=== PATIENT | female | born 2000 | race Caucasian/White ===

== ENCOUNTER 2022-04-24 15:08 | Emergency (ER) | payer BC, OTHER ==
[~2022-04-24] VITALS: Ht 160 cm; Wt 49.0 kg
[2022-04-24 16:35] LABS: Urine Bacteria FEW /hpf (None Seen); Urine Blood 2+ /uL (Negative); Urine Hyaline Cast FEW /lpf (0 - 2); Urine Mucus FEW (None Seen); Urine Specific Gravity 1.029 (1.001-1.035); Urine WBC 140 /hpf (0 - 5)
[2022-04-24 22:48] LABS: Basophils # (auto) 0 10 ^3/uL (0-0.2); Basophils % (auto) 0.5 % (0.0-2.0); Eosinophils # (auto) 0.1 10 ^3/uL (0-0.8); Eosinophils % (auto) 0.9 % (0.0-7.0); Hematocrit 41.2 % (36.0-46.0); Hemoglobin 13.4 g/dL (12.2-16.2); Lymphocytes # (auto) 2.2 10 ^3/uL (0.4-5.4); Lymphocytes % (auto) 27.1 % (10.0-50.0); Mean Corpuscular Hemoglobin 28.6 pg (28.0-32.0); Mean Corpuscular Hgb Conc. 32.4 g/dL (32.0-36.0); Mean Corpuscular Volume 88.1 fL (80.0-100.0); Monocytes # (auto) 0.8 10 ^3/uL (0-1.3); Monocytes % (auto) 9.6 % (0.0-12.0); Neutrophils # (auto) 4.9 10 ^3/uL (1.6-8.6); Neutrophils % (auto) 61.9 % (37.0-80.0); Red Blood Cells 4.67 10^6/uL (4.0-5.20)
[2022-04-24] MEDS ORDERED: CEFP200T15 PO (23:13)
[2022-04-25 00:07] VITALS: BP 113/67
== END 2022-04-25 00:07 | disposition home or self-care (01) ==
LOC: ER 15:08
DX: O23.41 Unspecified infection of urinary tract in pregnancy, first trimester (principal); N39.0 Urinary tract infection, site not specified; Z3A.01 Less than 8 weeks gestation of pregnancy
CPT/HCPCS: 36415; 76801; 81001; 81025; 84702; 85025

== ENCOUNTER 2022-06-07 15:33 | Emergency (ER) | payer BC ==
[~2022-06-07] VITALS: Ht 157.5 cm; Wt 62.4 kg
[~2022-06-07 15:33] MED LIST: CEFP200T15 PO
[2022-06-07 17:03] LABS: Basophils # (auto) 0.1 10 ^3/uL (0-0.2); Basophils % (auto) 0.6 % (0.0-2.0); Eosinophils # (auto) 0.1 10 ^3/uL (0-0.8); Eosinophils % (auto) 0.7 % (0.0-7.0); Hematocrit 40.5 % (36.0-46.0); Hemoglobin 13.3 g/dL (12.2-16.2); Lymphocytes # (auto) 2.1 10 ^3/uL (0.4-5.4); Lymphocytes % (auto) 21.5 % (10.0-50.0); Mean Corpuscular Hgb Conc. 32.8 g/dL (32.0-36.0); Mean Corpuscular Volume 88.3 fL (80.0-100.0); Monocytes # (auto) 0.6 10 ^3/uL (0-1.3); Monocytes % (auto) 5.7 % (0.0-12.0); Neutrophils # (auto) 6.9 10 ^3/uL (1.6-8.6); Neutrophils % (auto) 71.5 % (37.0-80.0); Red Blood Cells 4.59 10^6/uL (4.0-5.20); Red Cell Distribution Width 14.3 % (11.8-14.3); White Blood Cell 9.6 10^3/uL (4.4-10.8)
[2022-06-07 17:26] LABS: Albumin 3.3 g/dL (3.4-5.0); BUN/Creatinine Ratio 14.8; Calcium 8.4 mg/dL (8.5-10.1); Potassium 3.7 mmol/L (3.5-5.1)
[2022-06-07 17:29] LABS: Bilirubin, Total 0.9 mg/dL (0.2-1.0); Total Protein 6.8 g/dL (6.4-8.2)
[2022-06-07 18:12] LABS: Urine Bacteria FEW /hpf (None Seen); Urine Blood 1+ /uL (Negative); Urine Mucus FEW (None Seen); Urine Specific Gravity 1.037 (1.001-1.035); Urine WBC 8 /hpf (0 - 5)
[2022-06-08] MEDS ORDERED: NITR-87 PO (00:28)
[2022-06-08 00:36] VITALS: BP 104/70
== END 2022-06-08 00:42 | disposition home or self-care (01) ==
LOC: ER 15:33
DX: O20.0 Threatened abortion (principal); O23.41 Unspecified infection of urinary tract in pregnancy, first trimester; Z3A.13 13 weeks gestation of pregnancy
CPT/HCPCS: 36415; 76801; 80053; 81001; 84702; 85025

== ENCOUNTER 2022-11-02 16:07 | Observation (INO) | payer BC, MEDICAID ==
[~2022-11-02] VITALS: Ht 160 cm; Wt 56.7 kg
[~2022-11-02 16:07] MED LIST changes: +NITR-87 PO
[2022-11-02] MEDS: TERBUTALINE SULFATE 1 MG/ML 1ML VIAL SC SCH ×3 (17:11→18:31)
[2022-11-02] MEDS ORDERED: PREN1TAB71 OR (17:28)
[2022-11-02] MEDS ORDERED: BETAMETHASONE ACET (30mg/5ml) 5ml Vial 6mg/ml IM ONE (18:15)
[2022-11-02] MEDS ORDERED: NIFEdipine 10 MG CAP PO ONE (18:30)
[2022-11-02] MEDS ORDERED: LACTATED RINGER'S 1,000 ML IV SCH (18:30)
[2022-11-02] MEDS ORDERED: NIF10C PO (20:31)
== END 2022-11-02 20:50 | disposition home or self-care (01) ==
LOC: LDRP 16:07 → UNDOADMOB 16:07 → LDRP 16:25
PROVIDERS: ADMIT Obstetrics & Gynecology; ATTEND Obstetrics & Gynecology
DX: O60.03 Preterm labor without delivery, third trimester (principal); O46.93 Antepartum hemorrhage, unspecified, third trimester; Z3A.34 34 weeks gestation of pregnancy
CPT/HCPCS: 59025; 76815; 81002; 94760; 96360; 96361; 96372; G0378; J0702; J3105

== ENCOUNTER 2022-11-03 09:21 | Observation (INO) | payer MEDICAID ==
[~2022-11-03] VITALS: Ht 160 cm; Wt 56.7 kg
[~2022-11-03 09:21] MED LIST changes: +NIF10C PO; +PREN1TAB71 OR
[2022-11-03] MEDS ORDERED: BETAMETHASONE ACET (30mg/5ml) 5ml Vial 6mg/ml IM ONE (19:30)
== END 2022-11-03 19:56 | disposition home or self-care (01) ==
LOC: LDRP 19:05
PROVIDERS: ADMIT Obstetrics & Gynecology; ATTEND Obstetrics & Gynecology
DX: O60.03 Preterm labor without delivery, third trimester (principal); Z3A.34 34 weeks gestation of pregnancy
CPT/HCPCS: 59025; 81002; 94760; 96372; G0378

== ENCOUNTER 2022-11-08 10:55 | Observation (INO) | payer MEDICAID | END 2022-11-08 12:05 | disposition home or self-care (01) | LOC: LDRP 10:55 → UNDOADMOB 10:55 → LDRP 11:49 → UNDODISOB 12:05 | PROVIDERS: ADMIT Obstetrics & Gynecology; ATTEND Obstetrics & Gynecology | DX: O62.9 Abnormality of forces of labor, unspecified (principal); Z3A.35 35 weeks gestation of pregnancy | CPT/HCPCS: 59025; 76818; 81002; 94760; G0378 ==

== ENCOUNTER 2022-11-15 06:56 | Inpatient (IN) | payer MEDICAID ==
[~2022-11-15] VITALS: Ht 160 cm; Wt 57.2 kg
[2022-11-15] MEDS ORDERED: WITCH HAZEL-GLYCERIN PAD TOP PRN (07:15)
[2022-11-15] MEDS ORDERED: PROMETHAZINE HCL 25 MG/ML 1ML IV PRN (07:15)
[2022-11-15] MEDS ORDERED: BUTORPHANOL TARTRATE 2 MG/1 ML VIAL IV PRN ×2 (07:15)
[2022-11-15] MEDS ORDERED: PENICILLIN G POT 5MIL/D5 50ML 50 ML IV ONE (07:15)
[2022-11-15] MEDS ORDERED: LIDOCAINE 2%HCL (LOCAL ANESTH.) INJ 20ML MDV IJ PRN (07:15)
[2022-11-15] MEDS ORDERED: PHISODERM TOP SOLN 240ML BTL TOP PRN (07:15)
[2022-11-15] MEDS ORDERED: DERMOPLAST 60ML BOTTLE TOP PRN (07:15)
[2022-11-15 07:42] LABS: Basophils # (auto) 0.1 10 ^3/uL (0-0.2); Basophils % (auto) 0.8 % (0.0-2.0); Eosinophils # (auto) 0.1 10 ^3/uL (0-0.8); Eosinophils % (auto) 0.6 % (0.0-7.0); Hematocrit 44.1 % (36.0-46.0); Lymphocytes # (auto) 3.1 10 ^3/uL (0.4-5.4); Lymphocytes % (auto) 24.6 % (10.0-50.0); Mean Corpuscular Hemoglobin 31.1 pg (28.0-32.0); Mean Corpuscular Volume 91.6 fL (80.0-100.0); Monocytes # (auto) 0.8 10 ^3/uL (0-1.3); Monocytes % (auto) 6.6 % (0.0-12.0); Neutrophils # (auto) 8.5 10 ^3/uL (1.6-8.6); Neutrophils % (auto) 67.4 % (37.0-80.0); Nucleated Red Blood Cells % 0.1 %; Red Blood Cells 4.82 10^6/uL (4.0-5.20); Red Cell Distribution Width 13.1 % (11.8-14.3); White Blood Cell 12.5 10^3/uL (4.4-10.8)
[2022-11-15 07:54] LABS: INR 0.85 (0.9-1.15); Partial Thromboplastin Time 25.6 sec (24.6-33.4)
[2022-11-15 08:13] LABS: Albumin 2.6 g/dL (3.4-5.0); BUN/Creatinine Ratio 11.9; Calcium 9.1 mg/dL (8.5-10.1); Potassium 4.1 mmol/L (3.5-5.1)
[2022-11-15 08:15] LABS: Bilirubin, Total 0.6 mg/dL (0.2-1.0); Total Protein 6.7 g/dL (6.4-8.2)
[2022-11-15] MEDS: LACTATED RINGER'S 1,000 ML IV SCH (08:24)
[2022-11-15] MEDS ORDERED: LACT. RINGERS/OXYTOCIN 20UNITS 500 ML IV ONE ×2 (08:30→09:00)
[2022-11-15 09:46] LABS: Urine Bacteria NONE SEEN /hpf (None Seen); Urine Blood Negative /uL (Negative); Urine Specific Gravity 1.006 (1.001-1.035); Urine WBC 2 /hpf (0 - 5)
[2022-11-15 10:36] LABS: Alcohol, Urine < 3.0 mg/dL (0-10); Amphetamine Screen, Urine NEGATIVE (NEGATIVE); Barbiturate Scree,Urine NEGATIVE (NEGATIVE); Benzodiazephine Screen, Urine NEGATIVE (NEGATIVE); Cannabinoid Screen, Urine NEGATIVE (NEGATIVE); Cocaine Screen, Urine NEGATIVE (NEGATIVE); Opiate Scree,Urine NEGATIVE (NEGATIVE); Phencyclidine Screen, Urine NEGATIVE (NEGATIVE)
[2022-11-15] MEDS ORDERED: TERBUTALINE SULFATE 1 MG/ML 1ML VIAL SC PRN (10:45)
[2022-11-15] MEDS: LACT. RINGERS/OXYTOCIN 20UNITS 1,000 ML IV SCH ×2 (11:19→19:17)
[2022-11-15] MEDS: PENICILLIN G POTASSIUM 2,500,000 UNITS in D5W 5% 50 ML IV SCH ×3 (13:25→21:00)
[2022-11-16] MEDS: PENICILLIN G POTASSIUM 2,500,000 UNITS in D5W 5% 50 ML IV SCH ×2 (01:03→04:51)
[2022-11-16] MEDS: LACTATED RINGER'S 1,000 ML IV SCH (04:42)
[2022-11-16] MEDS ORDERED: IBUPROFEN 600 MG TAB PO PRN (07:00)
[2022-11-16] MEDS ORDERED: ACETAMINOPHEN 325 MG TAB PO PRN (07:00)
[2022-11-16] MEDS ORDERED: ONDANSETRON ODT 4 MG TAB PO PRN (07:00)
[2022-11-16 07:07] LABS: RPR Non Reactive (Non Reactive)
[2022-11-16 11:12] VITALS: BP 104/55
[2022-11-16 15:28] VITALS: BP 108/59
[2022-11-16 18:59] VITALS: BP 102/61
[2022-11-16 23:00] VITALS: BP 102/59
[2022-11-17 03:00] VITALS: BP 103/63
[2022-11-17 07:07] VITALS: BP 105/63
[2022-11-17 10:44] VITALS: BP 108/75
[2022-11-17 15:00] VITALS: BP 105/74
[2022-11-17 19:15] VITALS: BP 104/64
[2022-11-17 23:12] VITALS: BP 102/66
[2022-11-18 03:00] VITALS: BP 104/59
[2022-11-18 07:05] VITALS: BP 108/66
== END 2022-11-18 13:02 | disposition home or self-care (01) | DRG 560 ==
LOC: LDRP 06:56 → OBSVTOIN 06:56 → LDRP 11-17 15:16
PROVIDERS: ADMIT Obstetrics & Gynecology; ATTEND Obstetrics & Gynecology
PROC: 10E0XZZ Delivery of Products of Conception, External Approach (ICD-10-PCS; principal; 2022-11-16)
PROC: 0HQ9XZZ Repair Perineum Skin, External Approach (ICD-10-PCS; 2022-11-16)
DX: O60.14X0 Preterm labor third trimester with preterm delivery third trimester, not applicable or unspecified (principal); Z37.0 Single live birth; O69.81X0 Labor and delivery complicated by cord around neck, without compression, not applicable or unspecified; Z3A.36 36 weeks gestation of pregnancy; Z20.822 Contact with and (suspected) exposure to COVID-19; O70.0 First degree perineal laceration during delivery; Z3A.49 Greater than 42 weeks gestation of pregnancy
CPT/HCPCS: 36415; 59025; 59409; 80053; 80307; 81001; 81002; 85025; 85610; 85730; 86592; 86850; 86900; 86901; 87426; 94760; 94762; 96360; 96361; 96365; 96366; G0378; J2540; J2590; J7060

== ENCOUNTER 2023-12-07 15:45 | Emergency (ER) | payer MEDICAID ==
[~2023-12-07] VITALS: Ht 160 cm; Wt 46.6 kg
[2023-12-07 16:26] VITALS: BP 121/80; PULSE 75; RESP 16; TEMP 98.2; O2SAT 100
== END 2023-12-07 17:08 | disposition home or self-care (01) ==
LOC: ER 15:45
DX: Z32.02 Encounter for pregnancy test, result negative (principal); R10.2 Pelvic and perineal pain; Z79.899 Other long term (current) drug therapy
CPT/HCPCS: 36415; 84702

== ENCOUNTER 2025-02-20 17:36 | Emergency (ER) | payer MEDICAID ==
[~2025-02-20] VITALS: Ht 160 cm; Wt 48.4 kg
[~2025-02-20 17:36] MED LIST changes: -NIF10C PO; +NIFE10CA52 PO
--- NOTE | 2025-02-20 18:18 | ED.PDOC ---
[facility] DIRECTOR HPI Comments 24-year-old female with current approximate 9 week brought in by self complaining of vaginal spotting that started about an hour ago when wiping after using the restroom. She denies any abdominal pain, fever, nausea or vomiting. Denies any other symptoms. She states she became concerned because she has had a miscarriage in the past. Time Seen by MD: 18:00 Reviewed Notes: Nurses Notes, Medications, Allergies Allergies: Coded Allergies: NO KNOWN ALLERGIES (Unverified , 11/02/22) Home Meds Active Scripts Nitrofurantoin Monohydrate Mac (Macrobid) 100 Mg Cap, 100 MG PO BID for 7 Days, #14 CAP Prov:DERIAN REARDON MD 06/08/22 Cefpodoxime Proxetil (Cefpodoxime Proxetil) 200 Mg Tab, 200 MG PO BID for 10 Days, #20 TAB Prov:FABIENNE BRIGGS MD 04/24/22 Reported Medications Nifedipine (PROCARDIA CAPSULE) 10 Mg Cp, 10 MG PO Q4HR, CAP 11/02/22 Vit W/ Ferrous Fumara (PNV PLUS MULTIVI) Plus Tab, 1 OR, TAB 11/02/22 Information Source: Patient Mode of Arrival: Ambulatory Timing: Hours Prehospital treatment: None Severity: Moderate Vaginal Discharge: None Vaginal Lesions: None Bleeding Quality: Bright Red Vaginal Mass: None Onset Of Mass/Bleeding: Spontaneous Sexual Activity: Last Consensual [place]: Unknown Control: None History of: Current Blood Type: Unknown Symptoms of Possible : None Associated Signs and Symptoms: Vaginal Bleeding Past Medical History PAST MEDICAL HISTORY: Denies Surgical History: 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 all 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 1 AB 1 Family History Family History: Reviewed,noncontributory to illness Social History Smoker: Non-Smoker Alcohol: Denies ETOH Use Drugs: Denies Drug Use Lives In: Home Constitutional: denies: chills, diaphoresis, fatigue, fever, malaise, sweats, weakness, others EENTM: denies: blurred vision, double vision, ear bleeding, ear discharge, ear drainage, ear pain, ear ringing, eye pain, eye redness, hearing loss, mouth pain, mouth swelling, nasal discharge, nose bleeding, nose congestion, nose pain, photophobia, tearing, throat pain, throat swelling, voice changes, others Respiratory: denies: cough, hemoptysis, orthopnea, SOB at rest, shortness of breath, SOB with excertion, stridor, wheezing, others Cardiovascular: denies: chest pain, dizzy spells, diaphoresis, Dyspnea on exertion, edema, irregular heart beat, left arm pain, lightheadedness, palpitations, PND, syncope, others Gastrointestinal: denies: abdomen distended, abdominal pain, blood streaked bowels, constipated, diarrhea, dysphagia, difficulty swallowing, hematemesis, melena, nausea, poor appetite, poor fluid intake, rectal bleeding, rectal pain, vomiting, others Genitourinary: reports: abnormal vagina bleeding, ; denies: burning, dyspareunia, dysuria, flank pain, frequency, hematuria, incontinence, pain, vagina discharge, urgency, others Neurological: denies: dizziness, fainting, headache, left sided numbness, left sided weakness, numbness, paresthesia, pre-existing deficit, right sided numbness, right sided weakness, seizure, speech problems, tingling, tremors, weakness, others Musculoskeletal: denies: back pain, gout, joint pain, joint swelling, muscle pain, muscle stiffness, neck pain, others Integumetry: denies: bruises, change in color, change in hair/nails, dryness, laceration, lesions, lumps, rash, wounds, others Allergic/Immunocompromised: denies: Difficulty Healing, Frequent Infections, Hives, Itching, others Hematologic/Lymphatic: denies: anemia, blood clots, easy bleeding, easy bruising, swollen glands, others Endocrine: denies: excessive hunger, excessive sweating, excessive thirst, excessive urination, flushing, intolerance to cold, intolerance to heat, unexplained weight gain, unexplained weight loss, others Psychiatric: denies: anxiety, bipolar disorder, depression, hopeless, panic disorder, schizophrenia, sleepless, suicidal, others All Other Systems: Reviewed and Negative Physical Exam General Appearance: No Apparent Distress HEENT: Other (Pupils and face symmetric. Moist mucous membranes.) Neck: Full Range of Motion, Normal Inspection Respiratory: Lungs Clear, No Accessory Muscle Use, No Respiratory Distress, Normal Breath Sounds Cardiovascular: No Edema, No JVD, Regular Rate/Rhythm Breast Exam: Deferred Gastrointestinal: Non Tender, Soft Genitalia: Deferred Pelvic: Deferred Rectal: Deferred Extremities: Normal inspection, Normal range of motion, Non-tender, No pedal edema Neurologic: Alert (Oriented x4), Normal Affect, Normal Mood, Other (Ambulatory without difficulty) Cerebellar Function: NOT DONE Reflexes: NOT DONE Skin: Dry, Normal Color, Warm Lymphatic: NOT DONE Was a procedure done? Was a procedure done?: No Differential Diagnosis (MACHINE HAMPER MAKER) Vaginal Bleeding: - Complete, - Incomplete, - Inevitable, - Missed, - Threatened, Blood Loss Anemia, Cervicitis, Ectopic , Placenta Previa, UTI Vaginal Discharge: X-Ray, Labs, Meds, VS Vital Signs Date Time Temp Pulse Resp B/P (MAP) Pulse Ox O2 Delivery O2 Flow Rate FiO2 02/20/25 18:28 98.7 89 18 112/75 (87) 97 98.7 Lab Test 02/20/25 18:30 02/20/25 18:08 Range/Units White Blood Count 10.5 4.4-10.8 10^3/uL Red Blood Count 4.92 4.0-5.20 10^6/uL Hemoglobin 14.9 12.2-16.2 g/dL Hematocrit 44.2 36.0-46.0 % Mean Corpuscular Volume 89.8 80.0-100.0 fL Mean Corpuscular Hemoglobin 30.4 28.0-32.0 pg Mean Corpuscular Hemoglobin Concent 33.8 32.0-36.0 g/dL Red Cell Distribution Width 14.8 H 11.8-14.3 % Platelet Count 278 140-450 10^3/uL Mean Platelet Volume 8.4 6.9-10.8 fL Neutrophils (%) (Auto) 65.7 37.0-80.0 % Lymphocytes (%) (Auto) 25.5 10.0-50.0 % Monocytes (%) (Auto) 7.0 0.0-12.0 % Eosinophils (%) (Auto) 0.9 0.0-7.0 % Basophils (%) (Auto) 0.9 0.0-2.0 % Neutrophils # (Auto) 6.9 1.6-8.6 10 ^3/uL Lymphocytes # (Auto) 2.7 0.4-5.4 10 ^3/uL Monocytes # (Auto) 0.7 0-1.3 10 ^3/uL Eosinophils # (Auto) 0.1 0-0.8 10 ^3/uL Basophils # (Auto) 0.1 0-0.2 10 ^3/uL Nucleated Red Blood Cells 0.3 % Sodium Level 136 136-145 mmol/L Potassium Level 4.6 3.5-5.1 mmol/L Chloride Level 104 98-107 mmol/L Carbon Dioxide Level 26 20-31 mmol/L Anion Gap 6 5-15 Blood Urea Nitrogen 8 L 9-23 mg/dL Creatinine 0.50 L 0.550-1.02 mg/dL Glomerular Filtration Rate Calc 136 >90 mL/min BUN/Creatinine Ratio 16.0 10.0-20.0 Serum Glucose 87 74-106 mg/dL Calcium Level 9.7 8.7-10.4 mg/dL Beta HCG, Quantitative 072221.0 H 1.5-4.2 mIU/mL Urine Color Light-yellow Yellow Urine Clarity Turbid H Clear Urine pH 8.0 5.0-9.0 Urine Specific [place] 1.023 1.001-1.035 Urine Protein Trace H Negative Urine Ketones Negative Negative Urine Blood 2+ H Negative /uL Urine Nitrite Negative Negative Urine Bilirubin Negative Negative Urine Urobilinogen Normal Negative mg/dL Urine Leukocyte Esterase 2+ Negative /uL Urine RBC 4 0 - 4 /hpf Urine Microscopic WBC 9 H 0-5 /HPF Urine Squamous Epithelial Cells Mod <5 /hpf Urine Amorphous Crystals Few None Seen /hpf Urine Bacteria None seen None Seen /hpf Urine Glucose Normal Normal mg/dL PROCEDURE(s): OB4US - OB ULTRASOUND COMP LESS 14WKS REASON: vag bleed, 9 wk preg ORDER NUMBER(s): [id number], ACCESSION NUMBER(s): [id number] OBSTETRIC ULTRASOUND PRIOR TO 14 WEEKS CLINICAL INDICATION: vag bleed, 9 wk preg TECHNIQUE: Multiple grayscale ultrasound images were obtained of the pelvis via transabdominal approach for obstetric evaluation. Limited color Doppler and spectral Doppler acquisitions were also obtained. COMPARISON: OB ULTRASOUND COMP LESS 14WKS on DOS: 06/07/22, OB ULTRASOUND COMP LESS 14WKS on DOS: 04/24/22 FINDINGS: Uterus: 11.3 x 6.8 x 8.5 cm. There is a single intrauterine gestational sac is visualized. A pole is visualized measuring 2.5 cm compatible with an estimated gestational age of 9 weeks, 1 days. cardiac activity is present with heart rate of 184 beats per minute. A normal yolk sac is present. Right adnexa: right ovary not visualized. No right adnexal mass seen. Left adnexa: left ovary 2.9 x 1.6 x 3.0 cm. Normal arterial blood flow in the ovary. No left adnexal mass seen. Other: Small subchorionic hemorrhage measuring up to 1.5 cm. IMPRESSION: 1. Single living intrauterine with an estimated gestational age of 8 weeks, 6 days, corresponding to an estimated date of delivery of 09/26/2025. 2. Nonvisualization of the right ovary. Normal left ovary. 3. Small subchorionic hemorrhage. X-Ray, Labs, Meds, VS Comment 24-year-old female with current approximate 9 week complaining of vaginal spotting Vitals unremarkable Exam unremarkable Rhythm strip independently interpreted by me: Sinus rhythm, rate 89, no ectopy. Ob ultrasound: IMPRESSION: 1. Single living intrauterine with an estimated gestational age of 8 weeks, 6 days, corresponding to an estimated date of delivery of 09/26/2025. 2. Nonvisualization of the right ovary. Normal left ovary. 3. Small subchorionic hemorrhage. CBC unremarkable, basic metabolic panel unremarkable, serum quantitative hCG [id number], UA abnormal consistent with possible UTI No acute treatment indicated in the ED. Re-evaluation, patient is well-appearing and hemodynamically stable. No acute bleeding. Abdominal exam benign. Patient advised regarding workup findings, my impression, treatment plan and follow-up recommendations. Expressed understandi ng and agreed. Rx Macrobid Time of 1ST Reevaluation: 18:30 Reevaluation 1ST: Unchanged Patient Education/Counseling: Diagnosis, Treatment Family Education/Counseling: No Family Present Departure 1 Departure Time of Disposition: 19:59 Impression: Primary Impression: Vaginal bleeding during Additional Impressions: Subchorionic hemorrhage Qualified Codes: O20.8 - Other hemorrhage in early UTI (urinary tract infection) Qualified Codes: N39.0 - Urinary tract infection, site not specified Disposition: HOME / SELF CARE / HOMELESS Condition: Stable Additional Instructions: Your blood tests were unremarkable. Your urine test was abnormal, possibly indicating a urinary tract infection. I have prescribed antibiotics. Your ultrasound showed a single live fetus. There is a subchorionic hemorrhage, which is possibly the cause of your bleeding. This usually resolves as the baby grows. I have enclosed the ultrasound report below. Follow-up with your OBGYN in 1-2 days. Avoid strenuous activity until further evaluation by your OBGYN. Return to ER for persistent or worsening symptoms. [address] [address] Ph: [phone] DIAGNOSTIC IMAGING Diagnostic Imaging Report : [id number] Signed PATIENT: ELIZABETH LOVE ACCT: [id number] UNIT: [id number] : 2000 LOC: ER ROOM / BED: / AGE / SEX: 24 / F ADM STATUS: REG ER SERVICE 17 ORDERING PHYSICIAN: OLINDA LOZA MD PROCEDURE(s): OB4US - OB ULTRASOUND COMP LESS 14WKS REASON: vag bleed, 9 wk preg ORDER NUMBER(s): [id number], ACCESSION NUMBER(s): [id number] OBSTETRIC ULTRASOUND PRIOR TO 14 WEEKS CLINICAL INDICATION: vag bleed, 9 wk preg TECHNIQUE: Multiple grayscale ultrasound images were obtained of the pelvis via transabdominal approach for obstetric evaluation. Limited color Doppler and spectral Doppler acquisitions were also obtained. COMPARISON: OB ULTRASOUND COMP LESS 14WKS on DOS: 06/07/22, OB ULTRASOUND COMP LESS 14WKS on DOS: 04/24/22 FINDINGS: Uterus: 11.3 x 6.8 x 8.5 cm. There is a single intrauterine gestational sac is visualized. A pole is visualized measuring 2.5 cm compatible with an estimated gestational age of 9 weeks, 1 days. cardiac activity is present with heart rate of 184 beats per minute. A normal yolk sac is present. Right adnexa: right ovary not visualized. No right adnexal mass seen. Left adnexa: left ovary 2.9 x 1.6 x 3.0 cm. Normal arterial blood flow in the ovary. No left adnexal mass seen. Other: Small subchorionic hemorrhage measuring up to 1.5 cm. IMPRESSION: 1. Single living intrauterine with an estimated gestational age of 8 weeks, 6 days, corresponding to an estimated date of delivery of 09/26/2025. 2. Nonvisualization of the right ovary. Normal left ovary. 3. Small subchorionic hemorrhage. e-Prescriptions Nitrofurantoin Monohydrate Mac (Macrobid) 100 Mg Cap 100 MG PO BID for 7 Days, #14 CAP Prov: OLINDA LOZA MD 02/20/25 Discharged With: Self Critical Care Note Critical Care Time?: No Stability Stability form required: No Heart Score Heart Score: Heart Score Response (Comments) Value History N/A 0 EKG N/A 0 Age N/A 0 Risk Factors N/A 0 Troponin N/A 0 Total 0 I personally scribed for OLINDA LOZA MD ([email or web address]) on 02/20/25 at 18:18. Electronically submitted by Radha Sorto ([email or web address]). OLINDA LOZA MD Feb 20, 2025 18:18
[2025-02-20 18:23] LABS: Urine Bacteria None Seen /hpf (None Seen)
[2025-02-20 18:33] LABS: Urine Amorphous Crystal FEW /hpf (None Seen); Urine Blood 2+ /uL (Negative); Urine Clarity Turbid (Clear); Urine Color Light-Yellow (Yellow); Urine Protein, UAD TRACE (Negative); Urine Specific Gravity 1.023 (1.001-1.035); Urine Squamous Epithelial Cell MOD /hpf (<5); Urine Urobilinogen Normal (Negative); Urine WBC 9 /HPF (0-5)
[2025-02-20 18:47] LABS: Basophils # (auto) 0.1 10 ^3/uL (0-0.2); Basophils % (auto) 0.9 % (0.0-2.0); Eosinophils # (auto) 0.1 10 ^3/uL (0-0.8); Eosinophils % (auto) 0.9 % (0.0-7.0); Hematocrit 44.2 % (36.0-46.0); Hemoglobin 14.9 g/dL (12.2-16.2); Lymphocytes # (auto) 2.7 10 ^3/uL (0.4-5.4); Lymphocytes % (auto) 25.5 % (10.0-50.0); Mean Corpuscular Hemoglobin 30.4 pg (28.0-32.0); Mean Corpuscular Hgb Conc. 33.8 g/dL (32.0-36.0); Mean Corpuscular Volume 89.8 fL (80.0-100.0); Monocytes # (auto) 0.7 10 ^3/uL (0-1.3); Neutrophils # (auto) 6.9 10 ^3/uL (1.6-8.6); Neutrophils % (auto) 65.7 % (37.0-80.0); Nucleated Red Blood Cells % 0.3 %; Platelet Count (auto) 278 10^3/uL (140-450); Red Blood Cells 4.92 10^6/uL (4.0-5.20); Red Cell Distribution Width 14.8 % (11.8-14.3); White Blood Cell 10.5 10^3/uL (4.4-10.8)
[2025-02-20 18:51] LABS: Chloride 104 mmol/L (98-107); Potassium 4.6 mmol/L (3.5-5.1); Sodium 136 mmol/L (136-145)
[2025-02-20 18:52] LABS: Anion Gap 6 (5-15); Calcium 9.7 mg/dL (8.7-10.4); Carbon Dioxide 26 mmol/L (20-31)
[2025-02-20 18:57] LABS: Glucose 87 mg/dL (74-106)
[2025-02-20 18:58] LABS: Blood Urea Nitrogen 8 mg/dL (9-23)
--- NOTE | 2025-02-20 19:45 | DVH ---
OBSTETRIC ULTRASOUND PRIOR TO 14 WEEKS CLINICAL INDICATION: vag bleed, 9 wk preg TECHNIQUE: Multiple grayscale ultrasound images were obtained of the pelvis via transabdominal approa for obstetric evaluation. Limited color Doppler and spectral Doppler acquisitions were also obtain ed. COMPARISON: OB ULTRASOUND COMP LESS 14WKS on DOS: 06/07/22, OB ULTRASOUND COMP LESS 14WKS on DOS: FINDINGS: Uterus: 11.3 x 6.8 x 8.5 cm. There is a single intrauterine gestational sac is visualized. A po le is visualized measuring 2.5 cm compatible with an estimated gestational age of 9 weeks, 1 days. F etal cardiac activity is present with heart rate of 184 beats per minute. A normal yolk sac is prese nt. Right adnexa: right ovary not visualized. No right adnexal mass seen. Left adnexa: left ovary 2.9 x 1.6 x 3.0 cm. Normal arterial blood flow in the ovary. No left adnexal mass seen. Other: Small subchorionic hemorrhage measuring up to 1.5 cm. IMPRESSION: 1. Single living intrauterine with an estimated gestational age of 8 weeks, 6 days, corre sponding to an estimated date of delivery of 09/26/2025. 2. Nonvisualization of the right ovary. Normal left ovary. 3. Small subchorionic hemorrhage.
[2025-02-20] MEDS ORDERED: NITR-87 PO (20:02)
[2025-02-20 21:00] VITALS: BP 124/76; PULSE 81; RESP 16; TEMP 98.4; O2SAT 99
== END 2025-02-20 21:17 | disposition home or self-care (01) ==
LOC: ER 17:42
DX: O20.0 Threatened abortion (principal); O23.41 Unspecified infection of urinary tract in pregnancy, first trimester; N39.0 Urinary tract infection, site not specified; Z3A.08 8 weeks gestation of pregnancy
CPT/HCPCS: 36415; 76801; 80048; 81001; 84702; 85025

== ENCOUNTER 2025-05-22 14:27 | Observation (INO) | payer MEDICAID ==
--- NOTE | 2025-05-22 15:50 | DVH ---
EXAM DESCRIPTION: LIMITED TRANSABDOMINAL OBSTETRICAL ULTRASOUND CLINICAL HISTORY: vaginal bleeding COMPARISON: OBSTERICAL LIMITED on DOS: 11/02/22, OBLTD on DOS: 11/02/22, OB4US on DOS: 06/07/22, OB4US on D OS: 04/24/22 TECHNIQUE: Limited obstretical ultrasound was performed for the findings listed below. FINDINGS: The maximum vertical pocket of amniotic fluid measures 7.1 cm The presentation is cephalic. The placenta is anterior, without evidence of previa or abruption. heart rate 154 beats per minute. The cervix measures 3.4cm and is closed. IMPRESSION: 1. As noted above.
--- NOTE | 2025-05-23 16:32 | DVHDS2 ---
Physician Discharge Progress N Final Diagnosis: Vaginal Bleeding 22wks Operations or Procedures: Operations or Procedures nst ,sono Condition on Discharge: Good Disposition: Home Discharge Instructions: Diet: Regular Activity: No Restrictions, As Tolerated Follow Up/Referral: Keep OB clinc appointments Medications: na Follow Up Care: Specialist: 1w Discharge Statement: "Patient was advised to return to the ER or call 911 if any headaches, dizziness, shortness of breath, chest pain, abdominal pain, bleeding, fevers, or worsening of medical condition. Patient was counseled about treatment plan, medications, possible side effects, patientverbalized understanding. All questions were answered to the best of my ability. This discharge took greater then 30 minutes in planning, reviewing documentation, counseling the patient, and discussing with other team members." Visit Coding OBGYN Date of Service: May 22, 2025 Billing Provider: GHAZALA LANE DO PACKING AND WRAPPING SUPERVISOR Common Visit Codes: 01486-BPYUXEG OBS CARE (HIGH) PACKING AND WRAPPING SUPERVISOR Procedure Codes: 00607-19- NON-STRESS TEST GHAZALA LANE DO May 23, 2025 16:32
== END 2025-05-22 17:00 | disposition home or self-care (01) ==
LOC: UNDOADMOB 14:27 → LDRP 14:27 → UNDODISOB 17:00
PROVIDERS: ADMIT Obstetrics & Gynecology; ATTEND Obstetrics & Gynecology
DX: O46.92 Antepartum hemorrhage, unspecified, second trimester (principal); Z3A.22 22 weeks gestation of pregnancy; Z79.899 Other long term (current) drug therapy
CPT/HCPCS: 76815; 76817; 81002; 94760; G0378; 59025

== ENCOUNTER 2025-07-19 12:30 | Observation (INO) | payer MEDICAID ==
--- NOTE | 2025-07-19 14:03 | DVH ---
BIOPHYSICAL PROFILE HISTORY: vaginal bleeding 30.1 gestation TECHNIQUE: Multiple transabdominal real-time grayscale sonographic images through the gravid uterus of the fetus with duplex Doppler color flow and M-mode spectral analysis Findings/IMPRESSION: 1. Intrauterine with cephalic presentation with the placenta in anterior position. 2. Heart rate of 135 beats per minute. 3. Current KASSIE 13.9 cm. 4. No placenta previa or abruption seen. 5. Cervix appears closed, measuring 4.1 cm.
--- NOTE | 2025-07-19 15:01 | DVHDS2 ---
Physician Discharge Progress N Final Diagnosis: IUP 30 wk, vaginal bleeding (resolved) Operations or Procedures: Operations or Procedures NST, OB ultrasound (ALL WNL) Condition on Discharge: Stable Disposition: Home Discharge Instructions: Diet: Regular Activity: No Restrictions, As Tolerated Activity comment: Pelvic rest Follow Up/Referral: N/A Medications: N/A Follow Up Care: Discharge Statement: "Patient was advised to return to the ER or call 911 if any headaches, dizzi ness, shortness of breath, chest pain, abdominal pain, bleeding, fevers, or worsening of medical condition. Patient was counseled about treatment plan, medications, possible side effects, patientverbalized understanding. All questions were answered to the best of my ability. This discharge took greater then 30 minutes in planning, reviewing documentation, counseling the patient, and discussing with other team members." Visit Coding OBGYN Date of Service: Jul 19, 2025 Billing Provider: CLAY VARELA DO WEB DEVELOPMENT CONSULTANT Common Visit Codes: 56785-UBZ/OBS SAME DATE (HIGH) WEB DEVELOPMENT CONSULTANT Procedure Codes: 37088-13- NON-STRESS TEST CLAY VARELA DO Jul 19, 2025 15:01
== END 2025-07-19 14:42 | disposition home or self-care (01) ==
LOC: LDRP 12:30
PROVIDERS: ADMIT Obstetrics & Gynecology; ATTEND Obstetrics & Gynecology
DX: O46.93 Antepartum hemorrhage, unspecified, third trimester (principal); Z3A.30 30 weeks gestation of pregnancy; Z98.890 Other specified postprocedural states
CPT/HCPCS: 59025; 76815; 81002; 94760; G0378

== ENCOUNTER 2025-09-09 08:30 | Observation (INO) | payer MEDICAID ==
--- NOTE | 2025-09-09 09:25 | DVH ---
BIOPHYSICAL PROFILE HISTORY: poly/macro TECHNIQUE: Multiple transabdominal real-time grayscale sonographic images through the gravid uterus of the fetus with duplex Doppler color flow and M-mode spectral analysis FINDINGS: BIOPHYSICAL PROFILE: breathing score: 2 movement score: 2 tone score: 2 Quantitative KASSIE score: 2 (KASSIE: 26.8 Cm.) Total score: 8 The cervix not well visualized. Single live fetus in cephalic presentation. heart rate 141 beats per minute. Grade 2 anterior placenta without previa or abruption IMPRESSION: Biophysical profile score: 8 KASSIE 26.6 cm
--- NOTE | 2025-09-09 11:03 | DVHDS2 ---
Physician Discharge Progress N Final Diagnosis: testing for polyhydramnios and macrosomia Operations or Procedures: Operations or Procedures IUP@37.5wks VSS per RN NST reactive per RN FKC/PreE/Labor precautions reviewed Dr. Cardona consulted, agrees with POC. Other Interventions Other Interventions [facility] [id number] [place] [address] Ph: [phone] DIAGNOSTIC IMAGING Diagnostic Imaging Report : [id number] Signed PATIENT: ELIZABETH LOVEACCT: [id number] UNIT: [id number] : 2000 LOC: [facility] ROOM / BED: TRIAGE1 / A AGE / SEX: 25 / F ADM STATUS: ADM IN SERVICE 5 ORDERING PHYSICIAN: CATHIE BARAHONA CNM PROCEDURE(s): BPP - BIOPHYSICAL PROFILE REASON: poly/macro ORDER NUMBER(s): [id number], ACCESSION NUMBER(s): [id number] BIOPHYSICAL PROFILE HISTORY: poly/macro TECHNIQUE: Multiple transabdominal real-time grayscale sonographic images through the gravid uterus of the fetus with duplex Doppler color flow and M-mode spectral analysis FINDINGS: BIOPHYSICAL PROFILE: breathing score: 2 movement score: 2 tone score: 2 Quantitative KASSIE score: 2 (KASSIE: 26.8 Cm.) Total score: 8 The cervix not well visualized. Single live fetus in cephalic presentation. heart rate 141 beats per minute. Grade 2 anterior placenta without previa or abruption IMPRESSION: Biophysical profile score: 8 KASSIE 26.6 cm ATED BY: RICARDO LEBLANC MD DICTATED DATE/TIME: 09/09/25922 SIGNED BY: RICARDO LEBLANC MD SIGNED DATE/TIME: 09/09/25922 CC: Condition on Discharge: Stable Disposition: Home Discharge Instructions: Diet: Regular Activity: No Restrictions, As Tolerated Medications: see med list Follow Up Care: Specialist: f/u in 3 days Discharge Statement: "Patient was advised to return to the ER or call 911 if any headaches, dizziness, shortness of breath, chest pain, abdominal pain, bleeding, fevers, or worsening of medical condition. Patient was counseled about treatment plan, medications, possible side effects, patientverbalized understanding. All questions were answered to the best of my ability. This discharge took greater then 30 minutes in planning, reviewing documentation, counseling the patient, and discussing with other team members." Visit Coding OBGYN Date of Service: Sep 09, 2025 Billing Provider: CATHIE BARAHONA CNM NETWORK SECURITY ARCHITECT Common Visit Codes: [id number] OBS CARE (HIGH) NETWORK SECURITY ARCHITECT Procedure Codes: 47839-68- NON-STRESS TEST CATHIE BARAHONA CNM Sep 09, 2025 11:03
== END 2025-09-09 10:05 | disposition home or self-care (01) ==
LOC: LDRP 08:30
PROVIDERS: ADMIT Obstetrics & Gynecology; ATTEND Obstetrics & Gynecology
DX: O40.3XX0 Polyhydramnios, third trimester, not applicable or unspecified (principal); Z3A.37 37 weeks gestation of pregnancy; Z98.890 Other specified postprocedural states
CPT/HCPCS: 59025; 76819; 81002; 94760; G0378

== ENCOUNTER 2025-09-12 08:05 | Observation (INO) | payer MEDICAID ==
--- NOTE | 2025-09-12 09:15 | DVHDS2 ---
Physician Discharge Progress N Final Diagnosis: polyhydramnia 38wks Operations or Procedures: Operations or Procedures nst reactive reviwed,sono Condition on Discharge: Good Disposition: Home Discharge Instructions: Diet: Consistent carbohydrate Activity: No Restrictions, As Tolerated Medications: na Follow Up Care: Specialist: 3d Discharge Statement: "Patient was advised to return to the ER or call 911 if any headaches, dizziness, shortness of breath, chest pain, abdominal pain, bleeding, fevers, or worsening of medical condition. Patient was counseled about treatment plan, medications, possible side effects, patientverbalized understanding. All questions were answered to the best of my ability. This discharge took greater then 30 minutes in planning, reviewing documentation, counseling the patient, and discussing with other team members." Visit Coding OBGYN Date of Service: Sep 12, 2025 Billing Provider: GHAZALA LANE DO ALARM SIGNALER Common Visit Codes: [id number]-KPNYFXD INP/OBS CARE (HIGH) ALARM SIGNALER Procedure Codes: 84511-01- NON-STRESS TEST GHAZALA LANE DO Sep 12, 2025 09:15
--- NOTE | 2025-09-12 09:50 | DVH ---
BIOPHYSICAL PROFILE HISTORY: Polyhydramnios TECHNIQUE: Multiple transabdominal real-time grayscale sonographic images through the gravid uterus of the fetus with duplex Doppler color flow and M-mode spectral analysis FINDINGS: BIOPHYSICAL PROFILE: breathing score: 2 movement score: 2 tone score: 2 Quantitative KASSIE score: 2 (KASSIE: 24.2 cm, MVP: 8.7 cm.) findings suggest polyhydramnios Total score: 8/8 The cervix not visible Single live fetus in cephalic presentation. heart rate 138 beats per minute. Anterior Grade 2 placenta without previa or abruption Single live fetus at 30 weeks 1 day Biophysical profile score 8/8 corresponding to an MURRAY of 09/25/2025 No other measurements given IMPRESSION: 1. Biophysical profile score: 8/8 2. FHR: 138 bpm
== END 2025-09-12 09:38 | disposition home or self-care (01) ==
LOC: UNDOADMOB 08:05 → LDRP 08:05
PROVIDERS: ADMIT Obstetrics & Gynecology; ATTEND Obstetrics & Gynecology
DX: O40.3XX0 Polyhydramnios, third trimester, not applicable or unspecified (principal); Z3A.38 38 weeks gestation of pregnancy; Z98.890 Other specified postprocedural states; Z79.899 Other long term (current) drug therapy
CPT/HCPCS: 59025; 76819; 81002; 94760; G0378

== ENCOUNTER 2025-09-16 05:47 | Observation (INO) | payer MEDICAID ==
--- NOTE | 2025-09-16 09:24 | DVH ---
BIOPHYSICAL PROFILE HISTORY: POLY MACRO TECHNIQUE: Multiple transabdominal real-time grayscale sonographic images through the gravid uterus of the fetus with duplex Doppler color flow and M-mode spectral analysis FINDINGS: BIOPHYSICAL PROFILE: breathing score: 2 movement score: 2 tone score: 2 Quantitative KASSIE score: 2 (KASSIE: 20.2 Cm.) Total score: 8 The cervix not well visualized. Single live fetus in cephalic presentation. heart rate 128 beats per minute. Grade 2 anterior placenta without previa or abruption IMPRESSION: Biophysical profile score: 8
--- NOTE | 2025-09-16 10:15 | DVHDS2 ---
Physician Discharge Progress N Final Diagnosis: testing for poly/macro Operations or Procedures: Operations or Procedures 25yo IUP@38.5wks VSS NST reactive per RN SVE by RN per pt request: /3 FKC/PreE/labor precautions reviewed Other Interventions Other Interventions [address] [address] Ph: [phone] DIAGNOSTIC IMAGING Diagnostic Imaging Report : [id number] Signed PATIENT: ELIZABETH LOVEACCT: [id number] UNIT: [id number] : 2000 LOC: [facility] ROOM / BED: TRIAGE1 / A AGE / SEX: 25 / F ADM STATUS: ADM IN SERVICE 2 ORDERING PHYSICIAN: CATHIE BARAHONA CNM PROCEDURE(s): BPP - BIOPHYSICAL PROFILE REASON: POLY MACRO ORDER NUMBER(s): [id number], ACCESSION NUMBER(s): [id number] BIOPHYSICAL PROFILE HISTORY: POLY MACRO TECHNIQUE: Multiple transabdominal real-time grayscale sonographic images through the gravid uterus of the fetus with duplex Doppler color flow and M-mode spectral analysis FINDINGS: BIOPHYSICAL PROFILE: breathing score: 2 movement score: 2 tone score: 2 Quantitative KASSIE score: 2 (KASSIE: 20.2 Cm.) Total score: 8 The cervix not well visualized. Single live fetus in cephalic presentation. heart rate 128 beats per minute. Grade 2 anterior placenta without previa or abruption IMPRESSION: Biophysical profile score: 8 ATED BY: RICARDO LEBLANC MD DICTATED DATE/TIME: 09/16/25920 SIGNED BY: RICARDO LEBLANC MD SIGNED DATE/TIME: 09/16/25920 CC: Condition on Discharge: Stable Disposition: Home Discharge Instructions: Diet: Regular Activity: No Restrictions, As Tolerated Medications: SEE MED LIST Follow Up Care: Specialist: f/u twice weekly for NST/BPP per Dr. Cardona Discharge Statement: "Patient was advised to return to the ER or call 911 if any headaches, dizziness, shortness of breath, chest pain, abdominal pain, bleeding, fevers, or worsening of medical condition. Patient was counseled about treatment plan, medications, possible side effects, patientverbalized understanding. All questions were answered to the best of my ability. This discharge took greater then 30 minutes in planning, reviewing documentation, counseling the patient, and discussing with other team members." Visit Coding OBGYN Date of Service: Sep 16, 2025 Billing Provider: CATHIE BARAHONA CNM [employer] Common Visit Codes: 77040-[id number] OBS CARE (HIGH) [employer] Procedure Codes: 23899-39- NON-STRESS TEST CATHIE BARAHONA CNM Sep 16, 2025 10:15
== END 2025-09-16 09:58 | disposition home or self-care (01) ==
LOC: LDRP 08:37 → UNDOADMOB 08:37 → LDRP 08:45 → UNDODISOB 09:58
PROVIDERS: ADMIT Obstetrics & Gynecology; ATTEND Obstetrics & Gynecology
DX: O42.913 Preterm premature rupture of membranes, unspecified as to length of time between rupture and onset of labor, third trimester (principal); Z3A.38 38 weeks gestation of pregnancy; Z98.890 Other specified postprocedural states
CPT/HCPCS: 59025; 76819; 81002; G0378

== ENCOUNTER 2025-09-19 08:06 | Observation (INO) | payer MEDICAID ==
--- NOTE | 2025-09-19 09:07 | DVH ---
CLINICAL HISTORY: Polyhydramnios, macrocephaly. COMPARISON: US BIOPHYSICAL PROFILE on DOS: 09/16/25, US BIOPHYSICAL PROFILE on DOS: 09/12/25, US BIOPHYSICAL PROFILE on DOS: 09/09/25 TECHNIQUE: biophysical profile was performed. Transabdominal sonographic images of the fetus were obtained. FINDINGS: The fetus is in cephalic position. heart rate measures 140 BPM. Amniotic fluid index measures 24.0 cm with MVP of 7.3. Echogenic debris is visualized in the Amniotic fluid. The placenta is anterior in position without evidence of previa or abruption Visualized. BPP profile is an overall score of 8/8, with 2/2 points for breathing, with at least one episode of breathing over a 30 second duration during a 30 minute observation, 2/2 points for movements, with 3 or more discrete body or limb movements, 2/2 points for tone, with one or more episodes of extremity extension with return to flexion, or opening and closing of hand, and 2/2 points for amniotic fluid, with at least 1 pocket of amniotic fluid that measures 2 cm in 2 perpendicular planes. IMPRESSION: 1. BPP score of 8/8. 2. Amniotic fluid index of 24.0. Echogenic debris in the amniotic fluid.
== END 2025-09-19 09:56 | disposition home or self-care (01) ==
LOC: LDRP 08:06 → UNDOADMOB 08:06 → LDRP 08:18
PROVIDERS: ADMIT Obstetrics & Gynecology; ATTEND Obstetrics & Gynecology
DX: O40.3XX0 Polyhydramnios, third trimester, not applicable or unspecified (principal); Z3A.39 39 weeks gestation of pregnancy; Z79.899 Other long term (current) drug therapy; Z98.890 Other specified postprocedural states
CPT/HCPCS: 59025; 76819; 81002; 94760; G0378